=== PATIENT | male | born 1965 | race Caucasian/White ===

== ENCOUNTER 2018-02-06 09:22 | Emergency (ER) | payer OTHER ==
[~2018-02-06] VITALS: Ht 177.8 cm; Wt 89.9 kg
[2018-02-06 09:58] LABS: HEMATOCRIT 49.4 % (38.0-50.0); HEMOGLOBIN 17.2 G/DL (12.5-16.6); MCH 29.9 PG (29.0-34.0); MCHC 34.8 G/DL (30.0-36.0); MCV 85.8 FL (86-99); PLATELET COUNT 299 K/uL (156-360); RBC DIS.WIDTH-CV 12.3 % (11.8-14.6); RBC DIS.WIDTH-SD 38.4 % (39-53); RED BLOOD COUNT 5.76 M/uL (4.00-5.50); WHITE BLOOD COUNT 7.5 K/uL (4.1-10.2)
[2018-02-06 10:06] LABS: ALBUMIN 4.5 g/dL (3.2-4.8); CHLORIDE 107 mEq/L (99-109); POTASSIUM 4.6 mEq/L (3.7-5.4); SODIUM 140 mEq/L (136-147)
[2018-02-06 10:09] LABS: GLUCOSE 104 mg/dL (70-99)
[2018-02-06 10:11] LABS: TOTAL BILIRUBIN 0.9 mg/dL (0.0-1.0)
[2018-02-06 10:12] LABS: ALKALINE PHOSPHATASE 54 IU/L (3-129); CREATININE 0.9 mg/dL (0.6-1.3); GFR ESTIMATE (CALCULATED) > 59 mL/min/ (58.99-99999)
[2018-02-06 10:13] LABS: UREA NITROGEN (BUN) 15 mg/dL (9-23)
[2018-02-06 10:14] LABS: AST (GOT) 18 IU/L (2-34)
[2018-02-06 10:15] LABS: ALT (GPT) 25 IU/L (3-49)
[2018-02-06 10:16] LABS: APPEARANCE CLEAR ((CLEAR)); BILIRUBIN NEGATIVE; BLOOD NEGATIVE; COLOR YELLOW ((YELLOW)); GLUCOSE (STRIP) NEGATIVE; KETONES NEGATIVE; LEUKOCYTES NEGATIVE; NITRITE NEGATIVE; PROTEIN (STRIP) 100; SPECIFIC GRAVITY 1.019 (1.000-1.030); UROBILINOGEN 0.2 MG/DL (0.2-1.0)
[2018-02-06 10:20] LABS: BACTERIA NONE SEEN /HPF; EPITHELIAL CELLS NONE SEEN /HPF; MUCUS TRACE /LPF; RED BLOOD CELLS 0-5 /HPF (0-5); UCUL ADDED? NO; WHITE BLOOD CELLS 0-5 /HPF (0-5)
[2018-02-06] MEDS ORDERED: ZOFRAN4 MG PO (12:56)
[2018-02-06] MEDS ORDERED: PERCOCET 5/31 TABLET PO (12:56)
[2018-02-06 13:21] VITALS: BP 164/108
== END 2018-02-06 13:22 | disposition home or self-care (01) ==
LOC: EME 09:22
DX: K80.20 Calculus of gallbladder without cholecystitis without obstruction (principal)
CPT/HCPCS: 76705; 80053; 81003; 85027; 99281; 99284; J3010